=== PATIENT | male | born 1970 | race Caucasian/White ===

== ENCOUNTER 2020-06-26 07:41 | Emergency (ER) | payer MEDICAID ==
[~2020-06-26] VITALS: Ht 175.3 cm; Wt 145.1 kg
--- NOTE | 2020-06-26 07:51 | NUR ---
PT BIN FROM [facility]. C/O CHEST PAIN 05/03. DENIES SOB, DIZZINESS, HEADACHE OR N/V. NO OTHER ASSOCIATED SYMPTOMS NOTED. VS STABLE. AWAITING MD GARZA.
[2020-06-26] MEDS ORDERED: ASPIRIN 325 MG TABLET ONE (08:00)
[2020-06-26] MEDS ORDERED: ASPIRIN 325 MG TABLET PO ONE (08:00)
--- NOTE | 2020-06-26 08:09 | NUR ---
PT SEEN BY
--- NOTE | 2020-06-26 08:10 | NUR ---
PT REFUSING FOR IV ACCESS TO BE PLACED. PER PT, HE DOESNT WANT IT TO BE PLACED, NOT UNLESS HE NEEDS TO GET MEDICATIONS THROUGH HIS IV. HE SAID HE WILL ONLY ALLOW IT IF THE DR ALREADY HAS MEDS TO GIVE HIM THROUGH IV. EXPLAINED IMPORTANCE OF OBTAINING IV ACCESS ESPECIALLY FOR EMERGENT PURPOSES, PT UNDERSTOOD BUT STILL REFUSED.
[2020-06-26 08:31] LABS: HEMOGLOBIN 12.1 g/dL (13.5-17.5)
[2020-06-26 08:33] LABS: BASOPHILS % (AUTO) 0.7 % (0.0-2.0); EOSINOPHILS % (AUTO) 3.3 % (0.0-6.0); HEMATOCRIT 37 % (39-51); LYMPHOCYTES # (AUTO) 1.4 /CMM (0.8-4.8); LYMPHOCYTES % (AUTO) 22.1 % (20.0-44.0); MEAN CORPUSCULAR HGB CONC 32 g/dl (31.0-36.0); MEAN CORPUSCULAR VOLUME 92 fL (80-96); MONOCYTES # (AUTO) 0.7 /CMM (0.1-1.30); MONOCYTES % (AUTO) 11.6 % (2.0-12.0); NEUTROPHILS # (AUTO) 3.9 /CMM (1.8-8.9); NEUTROPHILS % (AUTO) 62.3 % (43.0-81.0); PLATELET COUNT (AUTO) 232 /CMM (150-450); RED BLOOD CELL COUNT(AUTO) 4.07 MIL/uL (4.5-6.0); WHITE BLOOD COUNT (AUTO) 6.3 K/uL (4.3-11.0)
[2020-06-26 08:38] LABS: CALCIUM, SERUM 8.8 mg/dL (8.5-10.1); CARBON DIOXIDE 26 mmol/L (21-32); CHLORIDE 101 mmol/L (98-107); CREATININE 1.1 mg/dL (0.6-1.3); GLUCOSE 123 mg/dL (74-106); POTASSIUM 3.6 mmol/L (3.5-5.1); SODIUM SERUM 136 mmol/L (136-145); UREA NITROGEN, BLOOD 10 mg/dL (7-18)
[2020-06-26] MEDS ORDERED: METOPROLOL TARTRATE 50 MG TABLET ONE (08:49)
--- NOTE | 2020-06-26 08:54 | NUR ---
MD ORDERED METOPROLOL, RECHECKED PTS BP AND HR NOTED AT 122/88 AND HR OF 65. MD NOTIFIED. PER DR. TENA, NO NEED TO GIVE METOPROLOL.
--- NOTE | 2020-06-26 08:58 | NUR ---
PT SSTILL RREFUSING FOR IV ACCESS TO BE PLACED. EXPLAINED IMPORTANCE OF OBTAINING IV ACCESS ESPECIALLY FOR EMERGENT PURPOSES, PT UNDERSTOOD BUT STILL REFUSED.
[2020-06-26] MEDS ORDERED: METOPROLOL TARTRATE 25 MG TABLET PO ONE (09:00)
--- NOTE | 2020-06-26 09:06 | NUR ---
REPORT GIVEN TO YOGI AT [facility] FOR GREG. PT WILL BE RETURNING TO [facility]. [phone]
[2020-06-26 09:07] VITALS: BP 122/88
--- NOTE | 2020-06-26 09:11 | NUR ---
CALLED TRANSPORT [facility] [phone] MATHIEU ETA [phone]
--- NOTE | 2020-06-26 10:45 | NUR ---
Patient discharged to home in stable condition. Written and verbal after care instructions given. Patient verbalizes understanding of instruction. report given to honing machine operator for fiorella
== END 2020-06-26 10:45 | disposition home or self-care (01) ==
LOC: ER 07:41
DX: I10 Essential (primary) hypertension (principal); R07.89 Other chest pain; R00.0 Tachycardia, unspecified; E66.01 Morbid (severe) obesity due to excess calories; Z68.42 Body mass index [BMI] 45.0-49.9, adult
CPT/HCPCS: 36415; 71045-TC; 80048-TC; 84484-TC; 85025-TC

== ENCOUNTER 2020-06-29 10:03 | Inpatient (IN) | payer MEDICAID ==
[~2020-06-29] VITALS: Ht 175.3 cm; Wt 147.4 kg
--- NOTE | 2020-06-29 10:10 | NUR ---
BIN 39 from [facility] c/o non radiating substernal chest pain 324 ASA and 2 sprays of Nitro given in the field to no relief. Patient a/ox4, breathing even and unlabored, no sob noted, refuses to changed into a gown, also refusing to have IV insertion. No distress noted.
--- NOTE | 2020-06-29 10:16 | NUR ---
SEEN AND EXAMINED BY DR. ESPOSITO.
[2020-06-29 10:34] LABS: BASOPHILS % (AUTO) 0.3 % (0.0-2.0); EOSINOPHILS % (AUTO) 2.2 % (0.0-6.0); HEMATOCRIT 39 % (39-51); HEMOGLOBIN 12.6 g/dL (13.5-17.5); LYMPHOCYTES # (AUTO) 1.4 /CMM (0.8-4.8); LYMPHOCYTES % (AUTO) 24.1 % (20.0-44.0); MEAN CORPUSCULAR HGB CONC 32 g/dl (31.0-36.0); MEAN CORPUSCULAR VOLUME 92 fL (80-96); MONOCYTES # (AUTO) 0.7 /CMM (0.1-1.30); MONOCYTES % (AUTO) 11.3 % (2.0-12.0); NEUTROPHILS # (AUTO) 3.7 /CMM (1.8-8.9); NEUTROPHILS % (AUTO) 62.1 % (43.0-81.0); PLATELET COUNT (AUTO) 229 /CMM (150-450); RED BLOOD CELL COUNT(AUTO) 4.27 MIL/uL (4.5-6.0)
[2020-06-29 10:46] LABS: ALANINE AMINOTRANSFERASE 41 U/L (12-78); ALBUMIN 3.1 g/dL (3.4-5.0); ALKALINE PHOSPHATASE 53 U/L (46-116); ASPARTATE AMINOTRANSFERASE 17 U/L (15-37); BILIRUBIN,TOTAL 0.2 mg/dL (0.2-1.0); CARBON DIOXIDE 25 mmol/L (21-32); CHLORIDE 101 mmol/L (98-107); CREATININE 1.1 mg/dL (0.6-1.3); GLUCOSE 116 mg/dL (74-106); SODIUM SERUM 136 mmol/L (136-145); TOTAL PROTEIN, SERUM 7.5 g/dL (6.4-8.2); UREA NITROGEN, BLOOD 13 mg/dL (7-18)
[2020-06-29] MEDS ORDERED: BUSP30TA2 PO (10:52)
[2020-06-29] MEDS ORDERED: GABA600T12 PO (10:52)
[2020-06-29] MEDS ORDERED: QUET400T PO (10:52)
[2020-06-29] MEDS ORDERED: VENL37.55 PO (10:52)
--- NOTE | 2020-06-29 11:27 | NUR ---
COVID RESULT: NEGATIVE
--- NOTE | 2020-06-29 11:29 | NUR ---
CALLED NURSING SUP FOR TELE BED.
--- NOTE | 2020-06-29 11:32 | NUR ---
NURSING SUP GAVE TELE BED 107.
--- NOTE | 2020-06-29 11:37 | NUR ---
PAGED [facility].
[2020-06-29] MEDS ORDERED: Z GUARD REMEDY 2 OZ OINT TP PRN (12:00)
[2020-06-29] MEDS ORDERED: NITROGLYCERIN 0.4 MG/TAB BOTTLE SL PRN (12:00)
[2020-06-29] MEDS ORDERED: HYDROCODONE/APAP 5/325MG TABLET PO PRN (12:00)
[2020-06-29] MEDS: VENLAFAXINE XR 37.5 MG CAP.SR.24H PO SCH (12:00)
[2020-06-29] MEDS ORDERED: ONDANSETRON HCL/PF 4 MG/2 ML VIAL IVP PRN (12:00)
[2020-06-29] MEDS ORDERED: MAGNESIUM HYDROXIDE 30 ML UDC PO PRN (12:00)
[2020-06-29] MEDS ORDERED: MAG HYDROX/AL HYDROX/SIMETH 30 ML UDC PO PRN (12:00)
[2020-06-29] MEDS ORDERED: MORPHINE SULFATE INJ 2 MG/ML DISP.SYRIN IV PRN (12:00)
--- NOTE | 2020-06-29 12:02 | NUR ---
REPORT GIVEN TO MELISSA BAUMAN.
[2020-06-29 13:00] VITALS: BP 110/70
--- NOTE | 2020-06-29 13:14 | NUR ---
PATIENT A/OX4, DENIES PAIN, TRANSFERRED TO TELE FLOOR VIA ACLS PROTOCOL. VITALS STABLE.
--- NOTE | 2020-06-29 13:20 | NUR ---
RN NOTES RECEIVED FROM ER. A/O X4. ON RA SATURATING @98%. NO SOB OR ANY RESPI DISTRESS NOTED. R HAND #22, INTACT, PATENT AND FLUSHED. REFUSED SKIN INSPECTION. REFUSED CHANGING TO HOSPITAL GOWN. PLACED TO BED. NO PAIN REPORTED AT THIS TIME. SAFETY MEASURES OBSERVED. CALL LIGHT WITHIN REACH. BED LOCKED AND AT LOWEST POSITION. WILL CONTINUE TO MONITOR.
[2020-06-29 16:00] VITALS: BP 112/79
[2020-06-29] MEDS: QUETIAPINE FUMARATE 100 MG TABLET PO SCH (17:00)
[2020-06-29] MEDS ORDERED: busPIRone HCL 10 MG TABLET PO SCH (17:00)
[2020-06-29] MEDS: busPIRone 5 MG TABLET PO SCH (17:00)
[2020-06-29] MEDS: GABAPENTIN 300 MG CAPSULE PO SCH (17:00)
--- NOTE | 2020-06-29 19:50 | NUR ---
RN CLOSING NOTES PT RESTING IN BED. A/O X4. ON RA SATURATING @98%. NO SOB OR ANY RESPI DISTRESS NOTED. R HAND #22, INTACT, PATENT AND FLUSHED. REFUSED SKIN INSPECTION. NO PAIN REPORTED AT THIS TIME. SAFETY MEASURES OBSERVED. CALL LIGHT WITHIN REACH. BED LOCKED AND AT LOWEST POSITION. WILL ENDORSE TO NIGHT NURSE FOR GREG.
[2020-06-29 20:00] VITALS: BP 134/68
[2020-06-29] MEDS: ZOLPIDEM TARTRATE 5 MG TABLET PO PRN (20:40)
[2020-06-30] VITALS: BP 126/69
--- NOTE | 2020-06-30 02:19 | NUR ---
RN notes Received patient awake resting comfortably in bed watching TV with no distress noted. Breathing even and unlabored. Breathing even and unlabored. On room air tolerating well. No complaint of pain or discomfort. Alert and oriented, able to verbalize needs. Need attended. Kept clean and dry. Will endorse to next shift for continuity of care.
[2020-06-30 04:00] VITALS: BP 130/76
[2020-06-30 06:42] LABS: BASOPHILS % (AUTO) 0.4 % (0.0-2.0); EOSINOPHILS % (AUTO) 4.2 % (0.0-6.0); HEMATOCRIT 38 % (39-51); HEMOGLOBIN 12.2 g/dL (13.5-17.5); LYMPHOCYTES % (AUTO) 31.9 % (20.0-44.0); MEAN CORPUSCULAR HGB CONC 32 g/dl (31.0-36.0); MEAN CORPUSCULAR VOLUME 91 fL (80-96); MONOCYTES % (AUTO) 15.9 % (2.0-12.0); NEUTROPHILS # (AUTO) 2.9 /CMM (1.8-8.9); NEUTROPHILS % (AUTO) 47.6 % (43.0-81.0); PLATELET COUNT (AUTO) 242 /CMM (150-450); RED BLOOD CELL COUNT(AUTO) 4.14 MIL/uL (4.5-6.0); WHITE BLOOD COUNT (AUTO) 6.1 K/uL (4.3-11.0)
[2020-06-30 07:04] LABS: CALCIUM, SERUM 8.6 mg/dL (8.5-10.1); CREATININE 1.1 mg/dL (0.6-1.3); MAGNESIUM 2.4 mg/dL (1.8-2.4); PHOSPHORUS 4.2 mg/dL (2.5-4.9); POTASSIUM 4.3 mmol/L (3.5-5.1)
--- NOTE | 2020-06-30 07:30 | NUR ---
WEDGER AND GLUER AM NOTES RECEIVED IN BED, A/O X4. ON RA SATURATING @98%. NO SOB OR ANY RESPIRATORY DISTRESS, RESPIRATION UNLABORED. SINUS RHYTHM ON MONITOR HR 92. DENIES CHEST PAIN OR DISCOMFORT AT THIS TIME. R HAND G#22, IV ACCESS, FLUSHES WELL SITE CLEAR. REFUSED SKIN INSPECTION. REFUSED CHANGING TO HOSPITAL GOWN. AMBULATORY. DISCUSSED PLAN OF CARE, NEEDS FURTHER TEACHINGS. SAFETY MEASURES OBSERVED. CALL LIGHT WITHIN REACH. BED LOCKED AND AT LOWEST POSITION. WILL CONTINUE TO MONITOR.
[2020-06-30 08:00] VITALS: BP 149/83
[2020-06-30] MEDS: ASPIRIN 325 MG TABLET PO SCH (08:15)
[2020-06-30] MEDS: QUETIAPINE FUMARATE 100 MG TABLET PO SCH ×2 (08:16→16:45)
[2020-06-30] MEDS: VENLAFAXINE XR 37.5 MG CAP.SR.24H PO SCH (08:16)
[2020-06-30] MEDS: busPIRone 5 MG TABLET PO SCH ×2 (08:17→16:45)
[2020-06-30] MEDS: GABAPENTIN 300 MG CAPSULE PO SCH ×2 (08:17→16:45)
--- NOTE | 2020-06-30 09:30 | NUR ---
RN NOTES DUE MEDS GIVEN
--- NOTE | 2020-06-30 10:30 | NUR ---
RN NOTES DR. SANTA AT BEDSIDE.
[2020-06-30 12:00] VITALS: BP 140/76
[2020-06-30] MEDS: ACETAMINOPHEN 325 MG TABLET PO PRN ×2 (15:49→22:07)
[2020-06-30 16:00] VITALS: BP 150/88
--- NOTE | 2020-06-30 18:23 | NUR ---
HEAD TURNING MACHINE OPERATOR CLOSING NOTES PT RESTING IN BED, A/O X4. ON RA SATURATING @98%. NO SOB OR ANY RESPIRATORY DISTRESS, RESPIRATION UNLABORED. SINUS RHYTHM ON MONITOR HR 90s. DENIES CHEST PAIN OR DISCOMFORT AT THIS TIME. R HAND G#22, IV ACCESS, FLUSHES WELL SITE CLEAR. REFUSED SKIN INSPECTION. REFUSED CHANGING TO HOSPITAL GOWN. AMBULATORY. SAFETY MEASURES OBSERVED. CALL LIGHT WITHIN REACH. BED LOCKED AND AT LOWEST POSITION. ALL NEEDS MET. PM CARE EARLIER. NO OTHER SIGNIFICANT CHANGE IN CONDITION. WILL ENDORSE TO NEXT SHIFT FOR GREG.
[2020-06-30 20:00] VITALS: BP 130/74
--- NOTE | 2020-06-30 20:00 | NUR ---
HAND IRONER CLOSING NOTES PT IN BED,AWAKE AND VERBALLY RESPONSIVE A/O X4. ON RA SATURATING @99%. NO SOB NO RESPIRATORY DISTRESS, BREATHING EVEN UNLABORED. SINUS RHYTHM ON MONITOR HR 86 DENIES CHEST PAIN OR DISCOMFORT AT THIS TIME.WITH R HAND G#22, IV ACCESS,INTACT AND PATENT FLUSHES WELL SITE CLEAR.PTS REFUSED SKIN INSPECTION. REFUSED CHANGING TO HOSPITAL GOWN. AMBULATORY. SAFETY MEASURES OBSERVED. CALL LIGHT WITHIN REACH. BED LOCKED AND AT LOWEST POSITION. ALL NEEDS MET. WILL CONTINUE TO MONITOR PTS.
[2020-06-30] MEDS: ZOLPIDEM TARTRATE 5 MG TABLET PO PRN (20:48)
--- NOTE | 2020-06-30 22:00 | NUR ---
telephone advice nurse notes pts remove the tele box and refused to attach ,explain r/b ,pts verbalized understanding still does not want us to aplly the telebox.will offer again later.
--- NOTE | 2020-06-30 23:00 | NUR ---
radiotelephone operator notes pts non compliant to care does not want to change gown ,refused care again r/b , will offer again later.
[2020-07-01] VITALS: BP 144/86
[2020-07-01 04:00] VITALS: BP 127/83
--- NOTE | 2020-07-01 06:56 | NUR ---
telegraph dispatcher notes Pts remains in bed awake and responsive , all needs attended too. no fiorella no sob no distress noted .endorse to rn day shift for continuity of care.
[2020-07-01 08:00] VITALS: BP 163/79
[2020-07-01] MEDS: GABAPENTIN 300 MG CAPSULE PO SCH ×2 (08:09→16:40)
[2020-07-01] MEDS: ACETAMINOPHEN 325 MG TABLET PO PRN ×2 (08:09→15:06)
[2020-07-01] MEDS: ASPIRIN 325 MG TABLET PO SCH (08:09)
[2020-07-01] MEDS: busPIRone 5 MG TABLET PO SCH ×2 (08:09→16:40)
[2020-07-01] MEDS: QUETIAPINE FUMARATE 100 MG TABLET PO SCH ×2 (08:10→16:39)
[2020-07-01] MEDS: VENLAFAXINE XR 37.5 MG CAP.SR.24H PO SCH (08:10)
--- NOTE | 2020-07-01 09:30 | NUR ---
RN NOTES DUE MEDS GIVEN
[2020-07-01 12:00] VITALS: BP 113/76
[2020-07-01 16:00] VITALS: BP 115/75
[2020-07-01] MEDS ORDERED: LORAZEPAM 1 MG TABLET PO PRN (18:00)
--- NOTE | 2020-07-01 18:26 | NUR ---
MOBILE HOME MECHANIC CLOSING NOTES PT RESTING IN BED, A/O X4. ON RA SATURATING @98%. NO SOB OR ANY RESPIRATORY DISTRESS, RESPIRATION UNLABORED. SINUS RHYTHM ON MONITOR HR 90s. DENIES CHEST PAIN OR DISCOMFORT AT THIS TIME. R HAND G#20, IV ACCESS, FLUSHES WELL SITE CLEAR. REFUSED SKIN INSPECTION. HAD SHOWER TODAY BUT STILL REFUSED CHANGING TO HOSPITAL GOWN. AMBULATORY. SAFETY MEASURES OBSERVED. CALL LIGHT WITHIN REACH. BED LOCKED AND AT LOWEST POSITION. ALL NEEDS MET. PM CARE EARLIER. NO OTHER SIGNIFICANT CHANGE IN CONDITION. WILL ENDORSE TO NEXT SHIFT FOR GREG. PATIENT FOR TRANSFER TO [facility]. PICKUP AT 0700. NEED TO CALL THEM AT 0630. NPO POST MIDNIGHT
--- NOTE | 2020-07-01 19:36 | NUR ---
SUPERVISOR PUBLIC MESSAGE SERVICE NOTE PT IN BED SITTING UP. ASKING FOR TUNA SANDWICH, WHICH IS PROVIDED. A/O X 4, NO SOB, NO DISTRESS OR DISCOMFORT NOTED. DENIES PAIN. ON TELE SR/ST HR 110. AMBULATORY WITH STEADY GAIT. SL RT HAND #20 G INTACT AND PATENT. REMINDED PT THAT HE WILL NOT EAT AND DRINK AFTER MIDNIGHT DUE TO PROCEDURE IN AM AT [facility]. PT ACKNOWLEDGE IT. ALL NEEDS ATTENDED. VSS. CONTINUE TO MONITOR HIM.
[2020-07-01 20:00] VITALS: BP 131/68
[2020-07-02] VITALS: BP 120/70
[2020-07-02 04:00] VITALS: BP 121/63
--- NOTE | 2020-07-02 06:45 | NUR ---
SLD INCLUSION TEACHER NOTE PT IN BED ASLEEP, AROUSABLE. NO DISTRESS OR DISCOMFORT NOTED. DENIES PAIN. HELPER MARBLE FINISHER CALLED AND INFORMED THAT THE PT IS COMING FOR THE PROCEDURE. NURSE ANICETO INFORMED ME THAT SHE DON'T HAVE ANY ONE ON SCHEDULE BUT WILL CALL BACK TO INFORM US THE LATEST. WILL ENDORSE TO DAY SHIFT NURSE TO FOLLOW UP
--- NOTE | 2020-07-02 07:00 | NUR ---
MANAGER NC NOTE NURSE FROM [facility] CALLED BACK GAVE HER REPORT MOIZ ROCKWELL NURSE PT WILL BE COMING TO 2ND FLOOR SAME DAY SURGERY.
--- NOTE | 2020-07-02 07:10 | NUR ---
AERONAUTICAL [employer]ODUCTS SALES ENGINEER NOTE PER CHARGE NURSE PT IS COMING BACK TO US SO NO NEED FOR EXIT CARE. DAY SHIFT NURSE INFORMED TO GIVE PT ALL THE BELONGINGS AND LET HIM SIGN THE PAPER.
--- NOTE | 2020-07-02 07:30 | NUR ---
RECEIVED PATIENT IN BED THIS MORNING. PATIENT IS AAOX3, RESPONDS APPROPRIATELY. NO SIGNS OF ACUTE DISTRESS NOTED. SATING WELL ON ROOM AIR. SINUS TACHY IN THE 12S NOTED ON THE TELE MONITOR. AMBULATORY. SKIN INTACT. NPO AT THIS TIME. #20 R HAND C/D/I, FLUSHING WELL, NO SIGNS OF COMPLICATIONS NOTED. PATIENT IS GETTING P/U BY TRANSPORT FOR PROCEDURE AROUND 10:00, BELONGINGS SIGNED AND WITH PATIENT. SAFETY MEASURES IMPLEMENTED, BED IN LOWEST POSITION, LOCKED, SIDE RAILS UP, CALL LIGHT WITHIN REACH. WILL CONTINUE TO MONITOR PATIENT FOR CHANGES.
[2020-07-02 08:00] VITALS: BP 148/74
--- NOTE | 2020-07-02 08:45 | NUR ---
PER DR PÉREZ, OK TO GIVE ALL OF AM MEDS INCLUDING ASPIRIN.
[2020-07-02] MEDS: GABAPENTIN 300 MG CAPSULE PO SCH ×2 (08:59→17:00)
[2020-07-02] MEDS: VENLAFAXINE XR 37.5 MG CAP.SR.24H PO SCH (08:59)
[2020-07-02] MEDS: busPIRone 5 MG TABLET PO SCH ×2 (09:00→17:00)
[2020-07-02] MEDS: ASPIRIN 325 MG TABLET PO SCH (09:00)
[2020-07-02] MEDS: QUETIAPINE FUMARATE 100 MG TABLET PO SCH ×2 (09:00→17:00)
--- NOTE | 2020-07-02 09:15 | NUR ---
PATIENT STATES THAT HE IS HAVING AUDITORY HALLUCINATIONS TELLING HIM TO TAKE HIS MEDICATION. PATIENT DENIES VOICES TELLING HIM TO HURT HIMSELF/OTHERS. DENIES SI/HI AT THIS TIME.
--- NOTE | 2020-07-02 10:27 | NUR ---
TRANSPORT CAME TO SENIOR NATIONAL ACCOUNT MANAGER PATIENT TO TRANSFER TO [facility]. BELONGINGS SIGNED AND WITH PATIENT. NO SIGNS OF ACUTE DISTRESS NOTED AT THIS TIME.
--- NOTE | 2020-07-02 18:37 | NUR ---
PATIENT IS STILL NOT BACK FROM [facility]. WILL GIVE ONCOMING SHIFT RN REPORT FOR CONTINUITY OF CARE.
--- NOTE | 2020-07-02 20:00 | NUR ---
MATERIAL COMBINER NOTE PT STILL AT [facility], NO CALL OR ANY INFO RECEIVED.
--- NOTE | 2020-07-02 23:30 | NUR ---
SILK WORKER NOTE CLARIFIED WITH NURSING AIRFREIGHT OPERATIONS AGENT COLLEEN AT [facility] REGARDING PT. ACCORDING TO HER PT DID RECEIVED TX AND THEM AMA AROUND 1600, AND CAME BACK IN AM AFTER 1 HR A SUICIDAL IDEATION AND HALLUCINATION IN ER. SO PT IS NOT COMING BACK TO [facility] AT THIS TIME. NURSING AIRFREIGHT OPERATIONS AGENT AZRA AND CHARGE NURSE HANNAH ALSO INFORMED. PT WILL BE DISCHARGED FROM THE SYSTEM. Addendum: 07/02/20 at 1028 by LORAINE GAXIOLA RN CAME BACK IN ER OF [facility] WRITTEN AM IN ERROR. EXIT CARE WAS UNABLE TO COMPLETE.
== END 2020-07-02 23:47 | disposition short-term general hospital (02) | DRG 243 ==
LOC: ER 10:06 → TELE1 12:43
PROVIDERS: ADMIT Internal Medicine; ATTEND Internal Medicine
DX: K21.9 Gastro-esophageal reflux disease without esophagitis (principal); F41.9 Anxiety disorder, unspecified; I10 Essential (primary) hypertension; F32.9 Major depressive disorder, single episode, unspecified; G62.9 Polyneuropathy, unspecified; I25.2 Old myocardial infarction; F20.0 Paranoid schizophrenia; Z88.6 Allergy status to analgesic agent; Z79.899 Other long term (current) drug therapy; E66.01 Morbid (severe) obesity due to excess calories; D63.8 Anemia in other chronic diseases classified elsewhere; Z91.14 Patient's other noncompliance with medication regimen
CPT/HCPCS: 36415; 71045-TC; 80048-TC; 80061-TC; 80076-TC; 83735-TC; 83880; 84100-TC; 84484-TC; 85025-TC; 85730-TC; 87081-TC; 93307-TC; C9803; G0378; J7060